=== PATIENT | male | born 1960 | race Caucasian/White ===

== ENCOUNTER 2019-12-11 09:39 | Emergency (ER) | payer BC ==
[~2019-12-11] VITALS: Ht 177.8 cm; Wt 88.5 kg
[2019-12-11] MEDS ORDERED: KETO10TA2 PO (13:46)
[2019-12-11] MEDS ORDERED: FLONASE ALLERG9.9 ML NASAL (13:46)
[2019-12-11] MEDS ORDERED: ZITHROMAX500 MG PO (13:46)
[2019-12-11] MEDS ORDERED: MUCINEX DM ER1 EAC1 PO (13:46)
== END 2019-12-11 14:24 ==
LOC: ER 09:39
DX: J06.9 Acute upper respiratory infection, unspecified (principal); B96.0 Mycoplasma pneumoniae [M. pneumoniae] as the cause of diseases classified elsewhere